=== PATIENT | female | born 1995 | race African-American/Black ===

== ENCOUNTER 2018-08-08 14:24 | Emergency (ER) | payer MEDICAID ==
[~2018-08-08] VITALS: Ht 167.6 cm; Wt 142.0 kg
[2018-08-08] MEDS: ACETAMINOPHEN 325MG TABLET PO ONE (15:30)
[2018-08-08 15:31] LABS: BASOPHILS % 0.5 % (0.0-2.0); CHLORIDE 107 mEq/L (98-107); EOSINOPHILS % 0.1 % (0.0-5.0); HEMATOCRIT. 36.6 % (36.0-48.0); HEMOGLOBIN. 12.4 g/dL (12.0-16.0); LYMPHOCYTES % 20.4 % (20.0-50.0); MEAN CORPUSCULAR HEMOGLOBIN 27.7 pg (28.0-32.0); MEAN PLATELET VOLUME 7.5 fl (7.4-10.4); MONOCYTES % 8.8 % (2.0-8.0); NEUTROPHILS % 70.2 % (40.0-76.0); PLATELET 256 x1000/uL (130-400); RED BLOOD CELL COUNT 4.46 mill/uL (4.2-5.4); RED CELL DISTRIBUTION WIDTH 14.6 % (11.6-14.6)
[2018-08-08 15:34] LABS: ETHANOL BLOOD < 10 mg/dL
[2018-08-08 15:54] LABS: HCG SCREEN NEGATIVE
[2018-08-08] MEDS: SODIUM CHLORIDE 0.9% 1,000 ML IV ONE (16:00)
[2018-08-08 16:40] LABS: CLARITY URINE CLEAR (CLEAR); COLOR URINE YELLOW (YELLOW); KETONES URINE NEGATIVE (NEGATIVE); LEUKOCYTE ESTERASE URINE NEGATIVE (NEGATIVE); NITRITE URINE NEGATIVE (NEGATIVE); OCCULT BLOOD URINE NEGATIVE (NEGATIVE); PROTEIN URINE NEGATIVE (NEGATIVE); SPECIFIC GRAVITY URINE 1.018 (1.005-1.030); UROBILINOGEN URINE 0.2 E.U./dL (0.2-1.0)
[2018-08-08 16:51] LABS: *AMPHETAMINES SCREEN URINE NEGATIVE (NEGATIVE); *BARBITURATES SCREEN URINE NEGATIVE (NEGATIVE); *BENZODIAZEPINES SCREEN URINE NEGATIVE (NEGATIVE); *COCAINE SCREEN URINE NEGATIVE (NEGATIVE)
[2018-08-08 16:52] LABS: CANNABINOID URINE SCREEN NEGATIVE (NEGATIVE); METHADONE URINE SCREEN NEGATIVE (NEGATIVE); OPIATES URINE SCREEN NEGATIVE (NEGATIVE); PHENCYCLIDINE URINE SCREEN NEGATIVE (NEGATIVE)
[2018-08-08] MEDS ORDERED: IOHEXOL-300 100 ML BOTTLE ONE (18:10)
[2018-08-08 18:40] VITALS: BP 124/79
== END 2018-08-08 19:01 | disposition home or self-care (01) ==
LOC: ER 14:24
DX: R10.9 Unspecified abdominal pain (principal); R51 Headache; R07.89 Other chest pain; M54.9 Dorsalgia, unspecified; F31.9 Bipolar disorder, unspecified; I10 Essential (primary) hypertension
CPT/HCPCS: 36415; 74177; 80053; 80305; 80320; 81003; 83690; 84484; 84703; 85025; 93005; 99284; J7030; Q9967; G0480

== ENCOUNTER 2018-08-08 20:04 | Emergency (ER) | payer MEDICAID ==
[~2018-08-08] VITALS: Ht 167.6 cm; Wt 89.0 kg
[2018-08-08] MEDS ORDERED: OLANZAPINE 5MG TABLET ODT PO ONE (23:15)
[2018-08-09 01:49] VITALS: BP 128/92
== END 2018-08-09 01:54 | disposition home or self-care (01) ==
LOC: ER 20:04
DX: F09 Unspecified mental disorder due to known physiological condition (principal); Z76.0 Encounter for issue of repeat prescription; F41.9 Anxiety disorder, unspecified; F31.9 Bipolar disorder, unspecified; I10 Essential (primary) hypertension; Z88.0 Allergy status to penicillin
CPT/HCPCS: 99283

== ENCOUNTER 2018-10-23 20:17 | Emergency (ER) | payer MEDICAID ==
[~2018-10-23] VITALS: Ht 167.6 cm; Wt 91.0 kg
[2018-10-23] MEDS ORDERED: IPRATROPIUM BROMIDE (0.02%) 0.5MG/2.5ML NEB HHN STA (22:14)
[2018-10-23] MEDS ORDERED: ALBUTEROL (0.083%) 2.5MG/3ML NEB HHN STA (22:14)
[2018-10-23] MEDS ORDERED: SODIUM CHLORIDE 0.9% 1,000 ML IV ONE (22:14)
[2018-10-23 23:13] LABS: CLARITY URINE CLEAR (CLEAR); COLOR URINE YELLOW (YELLOW); KETONES URINE TRACE (NEGATIVE); LEUKOCYTE ESTERASE URINE NEGATIVE (NEGATIVE); NITRITE URINE NEGATIVE (NEGATIVE); OCCULT BLOOD URINE NEGATIVE (NEGATIVE); PH URINE 6.5 (4.5-8.0); PROTEIN URINE NEGATIVE (NEGATIVE); SPECIFIC GRAVITY URINE 1.017 (1.005-1.030)
[2018-10-24 00:53] LABS: CHLORIDE 118 mEq/L (98-107)
[2018-10-24 01:02] LABS: BASOPHILS % 0.5 % (0.0-2.0); HEMATOCRIT. 34.7 % (36.0-48.0); HEMOGLOBIN. 11.5 g/dL (12.0-16.0); LYMPHOCYTES % 28.4 % (20.0-50.0); MEAN CORPUSCULAR HEMOGLOBIN 27.2 pg (28.0-32.0); MEAN CORPUSCULAR VOLUME 82.3 fL (81.0-99.0); MEAN PLATELET VOLUME 7.3 fl (7.4-10.4); MONOCYTES % 9.9 % (2.0-8.0); NEUTROPHILS % 60.2 % (40.0-76.0); PLATELET 233 x1000/uL (130-400); RED BLOOD CELL COUNT 4.21 mill/uL (4.2-5.4); RED CELL DISTRIBUTION WIDTH 14.9 % (11.6-14.6)
[2018-10-24 01:10] LABS: HCG SCREEN NEGATIVE
[2018-10-24] MEDS ORDERED: POTASSIUM CHLORIDE 20MEQ TABLET SR PO NR (01:15)
[2018-10-24] MEDS ORDERED: KCL 10MEQ/50ML PREMIX 50 ML IV NR (02:00)
[2018-10-24 04:37] VITALS: BP 128/74
== END 2018-10-24 04:42 | disposition home or self-care (01) ==
LOC: ER 20:17
DX: J20.9 Acute bronchitis, unspecified (principal); N39.0 Urinary tract infection, site not specified; E87.6 Hypokalemia; E87.8 Other disorders of electrolyte and fluid balance, not elsewhere classified; E11.649 Type 2 diabetes mellitus with hypoglycemia without coma; R03.0 Elevated blood-pressure reading, without diagnosis of hypertension
CPT/HCPCS: 36415; 71045; 80053; 81003; 83605; 83690; 84484; 84703; 85025; 93005; 94640; 96360; 96361; 99284; J3480; J7030; J7611; Z7610

== ENCOUNTER 2018-11-11 20:38 | Emergency (ER) | payer MEDICAID ==
[~2018-11-11] VITALS: Ht 165.1 cm; Wt 102.0 kg
[2018-11-11] MEDS ORDERED: KETOROLAC 60MG/2ML VIAL IM STA (22:19)
[2018-11-11] MEDS ORDERED: ONDANSETRON 4MG ODT PO STA (22:19)
[2018-11-11 23:03] LABS: EOSINOPHILS % 1.5 % (0.0-5.0); HEMATOCRIT. 38.3 % (36.0-48.0); LYMPHOCYTES % 31.4 % (20.0-50.0); MEAN CORPUSCULAR HEMOGLOBIN 28.1 pg (28.0-32.0); MEAN CORPUSCULAR VOLUME 82.6 fL (81.0-99.0); MEAN PLATELET VOLUME 7.6 fl (7.4-10.4); MONOCYTES % 10.1 % (2.0-8.0); PLATELET 228 x1000/uL (130-400); RED BLOOD CELL COUNT 4.64 mill/uL (4.2-5.4); RED CELL DISTRIBUTION WIDTH 15.3 % (11.6-14.6)
[2018-11-11 23:07] LABS: CHLORIDE 107 mEq/L (98-107)
[2018-11-11 23:22] LABS: CLARITY URINE CLEAR (CLEAR); COLOR URINE YELLOW (YELLOW); KETONES URINE NEGATIVE (NEGATIVE); LEUKOCYTE ESTERASE URINE NEGATIVE (NEGATIVE); NITRITE URINE NEGATIVE (NEGATIVE); OCCULT BLOOD URINE NEGATIVE (NEGATIVE); PH URINE 5.5 (4.5-8.0); PROTEIN URINE NEGATIVE (NEGATIVE); SPECIFIC GRAVITY URINE 1.015 (1.005-1.030); UROBILINOGEN URINE 0.2 E.U./dL (0.2-1.0)
[2018-11-11 23:33] LABS: *AMPHETAMINES SCREEN URINE NEGATIVE (NEGATIVE); *BARBITURATES SCREEN URINE NEGATIVE (NEGATIVE); CANNABINOID URINE SCREEN NEGATIVE (NEGATIVE); METHADONE URINE SCREEN NEGATIVE (NEGATIVE); OPIATES URINE SCREEN NEGATIVE (NEGATIVE); PHENCYCLIDINE URINE SCREEN NEGATIVE (NEGATIVE)
[2018-11-11 23:34] LABS: *BENZODIAZEPINES SCREEN URINE NEGATIVE (NEGATIVE); *COCAINE SCREEN URINE NEGATIVE (NEGATIVE)
[2018-11-11 23:39] LABS: HCG SCREEN NEGATIVE
[2018-11-12] MEDS ORDERED: ONDANSETRON 4MG ODT PO ONE (01:45)
[2018-11-12 08:49] VITALS: BP 129/72
== END 2018-11-12 08:52 | disposition home or self-care (01) ==
LOC: ER 21:24
DX: R11.2 Nausea with vomiting, unspecified (principal); R19.7 Diarrhea, unspecified; R10.30 Lower abdominal pain, unspecified
CPT/HCPCS: 36415; 80053; 80305; 81003; 81025; 83690; 84703; 85025; 96372; 99283; J1885; Q0162; Z7610

== ENCOUNTER 2018-11-17 12:35 | Emergency (ER) | payer MEDICAID ==
[~2018-11-17] VITALS: Ht 157.5 cm; Wt 130.0 kg
[2018-11-17] MEDS ORDERED: SODIUM CHLORIDE 0.9% 1,000 ML IV ONE (15:23)
[2018-11-17] MEDS ORDERED: OLANZAPINE 10 MG/VIAL IM STA (15:23)
[2018-11-17] MEDS ORDERED: KETOROLAC 30MG/ML VIAL IV STA (15:23)
[2018-11-17] MEDS ORDERED: LORAZEPAM 2MG/ML CPJ IV STA (15:23)
[2018-11-17] MEDS ORDERED: ONDANSETRON HCL 4MG/2ML INJ IV ONE (15:30)
[2018-11-17 15:53] LABS: BASOPHILS % 0.9 % (0.0-2.0); EOSINOPHILS % 0.7 % (0.0-5.0); HEMATOCRIT. 37.8 % (36.0-48.0); HEMOGLOBIN. 12.8 g/dL (12.0-16.0); MEAN CORPUSCULAR HEMOGLOBIN 27.8 pg (28.0-32.0); MEAN CORPUSCULAR VOLUME 82.1 fL (81.0-99.0); MONOCYTES % 7.5 % (2.0-8.0); NEUTROPHILS % 64.9 % (40.0-76.0); PLATELET 222 x1000/uL (130-400); RED BLOOD CELL COUNT 4.61 mill/uL (4.2-5.4); RED CELL DISTRIBUTION WIDTH 15.4 % (11.6-14.6)
[2018-11-17 15:56] LABS: CHLORIDE 108 mEq/L (98-107); HCG SCREEN NEGATIVE
[2018-11-17 15:58] LABS: INR 1.1; PARTIAL THROMBOPLASTIN TIME 28.2 sec (23.4-31.0); PROTHROMBIN TIME 10.9 sec (9.6-11.0)
[2018-11-17 16:00] LABS: ETHANOL BLOOD < 10 mg/dL
[2018-11-17 16:43] LABS: CLARITY URINE CLEAR (CLEAR); COLOR URINE YELLOW (YELLOW); KETONES URINE NEGATIVE (NEGATIVE); LEUKOCYTE ESTERASE URINE NEGATIVE (NEGATIVE); NITRITE URINE NEGATIVE (NEGATIVE); OCCULT BLOOD URINE NEGATIVE (NEGATIVE); PH URINE 7.5 (4.5-8.0); PROTEIN URINE NEGATIVE (NEGATIVE); SPECIFIC GRAVITY URINE 1.017 (1.005-1.030)
[2018-11-17] MEDS ORDERED: VALPROIC ACID 250MG CAPSULE PO ONE (16:45)
[2018-11-17 17:38] LABS: *AMPHETAMINES SCREEN URINE NEGATIVE (NEGATIVE); *BARBITURATES SCREEN URINE NEGATIVE (NEGATIVE)
[2018-11-17 17:39] LABS: *BENZODIAZEPINES SCREEN URINE NEGATIVE (NEGATIVE); *COCAINE SCREEN URINE NEGATIVE (NEGATIVE); CANNABINOID URINE SCREEN NEGATIVE (NEGATIVE); METHADONE URINE SCREEN NEGATIVE (NEGATIVE); OPIATES URINE SCREEN NEGATIVE (NEGATIVE); PHENCYCLIDINE URINE SCREEN NEGATIVE (NEGATIVE)
[2018-11-17] MEDS ORDERED: VALPROIC ACID 250MG CAPSULE PO NR (21:00)
[2018-11-18] MEDS ORDERED: VALPROIC ACID 250MG CAPSULE PO NR (04:45)
[2018-11-18] MEDS ORDERED: VALPROIC ACID 250MG CAPSULE PO ONE (15:15)
[2018-11-18 17:30] VITALS: BP 121/81
== END 2018-11-18 17:59 | disposition home or self-care (01) ==
LOC: ER 12:35
DX: F23 Brief psychotic disorder (principal); R10.84 Generalized abdominal pain; I10 Essential (primary) hypertension; F20.9 Schizophrenia, unspecified; F31.9 Bipolar disorder, unspecified; R11.2 Nausea with vomiting, unspecified; Z88.0 Allergy status to penicillin
CPT/HCPCS: 36415; 70450; 80053; 80165; 80305; 80307; 80320; 80329; 81003; 83690; 83880; 84484; 84703; 85025; 85610; 85730; 93005; 96361; 96372; 96374; 96375; 99284; J1885; J2060; J2405; J3490; J7030; G0480

== ENCOUNTER 2018-11-27 22:40 | Emergency (ER) | payer MEDICAID ==
[~2018-11-27] VITALS: Ht 157.5 cm; Wt 138.0 kg
[2018-11-27 23:18] VITALS: BP 131/95
== END 2018-11-28 05:36 | disposition left against medical advice (07) ==
LOC: ER 22:40
DX: Z53.21 Procedure and treatment not carried out due to patient leaving prior to being seen by health care provider (principal)

== ENCOUNTER 2019-05-08 18:25 | Emergency (ER) | payer MEDICAID ==
[~2019-05-08] VITALS: Ht 154.9 cm; Wt 159.0 kg
[2019-05-08] MEDS ORDERED: KETOROLAC 60MG/2ML VIAL IM ONE (23:00)
[2019-05-08 23:03] VITALS: BP 139/89
== END 2019-05-08 23:04 | disposition home or self-care (01) ==
LOC: ER 18:25
DX: M54.5 Low back pain (principal)
CPT/HCPCS: 96372; 99283; J1885

== ENCOUNTER 2019-06-27 14:59 | Emergency (ER) | payer MEDICAID | END 2019-06-27 15:59 | disposition left against medical advice (07) | LOC: ER 14:59 | DX: F41.0 Panic disorder [episodic paroxysmal anxiety] (principal); Z53.21 Procedure and treatment not carried out due to patient leaving prior to being seen by health care provider ==

== ENCOUNTER 2019-09-05 16:32 | Emergency (ER) | payer MEDICAID ==
[~2019-09-05] VITALS: Ht 154.9 cm; Wt 175.0 kg
[2019-09-05] MEDS ORDERED: ACETAMINOPHEN 325MG TABLET PO ONE (16:45)
[2019-09-05] MEDS ORDERED: SODIUM CHLORIDE 0.9% 1,000 ML IV ONE (17:00)
[2019-09-05] MEDS ORDERED: ONDANSETRON HCL 4MG/2ML INJ IV STA (17:00)
[2019-09-05] MEDS ORDERED: ALBUTEROL 6.7GM HFA INHALER ORI ONE (17:15)
[2019-09-05 18:57] LABS: BASOPHILS % 0.3 % (0.0-2.0); EOSINOPHILS % 2.2 % (0.0-5.0); HEMATOCRIT. 35.6 % (36.0-48.0); HEMOGLOBIN. 11.9 g/dL (12.0-16.0); LYMPHOCYTES % 20.8 % (20.0-50.0); MEAN CORPUSCULAR HEMOGLOBIN 27.5 pg (28.0-32.0); MEAN CORPUSCULAR VOLUME 82.4 fL (81.0-99.0); MEAN PLATELET VOLUME 8.4 fl (7.4-10.4); NEUTROPHILS % 69.7 % (40.0-76.0); PLATELET 267 x1000/uL (130-400); RED BLOOD CELL COUNT 4.32 mill/uL (4.2-5.4)
[2019-09-05 19:02] LABS: CHLORIDE 106 mEq/L (98-107)
[2019-09-05 19:03] LABS: HCG SCREEN NEGATIVE
[2019-09-05 19:04] LABS: PROTHROMBIN TIME 10.4 sec (9.6-11.0)
[2019-09-05 19:15] LABS: CLARITY URINE CLEAR (CLEAR); COLOR URINE YELLOW (YELLOW); KETONES URINE NEGATIVE (NEGATIVE); LEUKOCYTE ESTERASE URINE TRACE (NEGATIVE); NITRITE URINE NEGATIVE (NEGATIVE); OCCULT BLOOD URINE NEGATIVE (NEGATIVE); PH URINE 6.5 (4.5-8.0); PROTEIN URINE NEGATIVE (NEGATIVE); SPECIFIC GRAVITY URINE 1.008 (1.005-1.030); UROBILINOGEN URINE 0.2 E.U./dL (0.2-1.0)
[2019-09-05] MEDS ORDERED: KETOROLAC 30MG/ML VIAL IV ONE (20:00)
[2019-09-05 20:30] VITALS: BP 136/71
== END 2019-09-05 20:32 | disposition home or self-care (01) ==
LOC: ER 16:32
DX: J06.9 Acute upper respiratory infection, unspecified (principal); Z03.818 Encounter for observation for suspected exposure to other biological agents ruled out; N39.0 Urinary tract infection, site not specified; L53.9 Erythematous condition, unspecified; I10 Essential (primary) hypertension; E11.65 Type 2 diabetes mellitus with hyperglycemia; Z90.49 Acquired absence of other specified parts of digestive tract; Z98.890 Other specified postprocedural states; Z88.0 Allergy status to penicillin
CPT/HCPCS: 36415; 71045; 80053; 81003; 83690; 83880; 84703; 85025; 85610; 87635; 87804; 93005; 94640; 96374; 96375; 99285; J1885; J2405; J7030; Z7610; C9803-CS; U0003-CS

== ENCOUNTER 2019-09-07 17:24 | Emergency (ER) | payer MEDICAID ==
[~2019-09-07] VITALS: Ht 165.1 cm; Wt 135.0 kg
[2019-09-07 18:58] VITALS: BP 147/100
[2019-09-07] MEDS ORDERED: PREDNISONE 20MG TABLET PO STA (19:05)
== END 2019-09-07 19:24 | disposition home or self-care (01) ==
LOC: ER 17:24
DX: J45.909 Unspecified asthma, uncomplicated (principal); I10 Essential (primary) hypertension; E11.9 Type 2 diabetes mellitus without complications; Z79.51 Long term (current) use of inhaled steroids; Z79.52 Long term (current) use of systemic steroids
CPT/HCPCS: 81025; 82962; 99283; J7512

== ENCOUNTER 2019-12-07 22:53 | Emergency (ER) | payer MEDICAID ==
[~2019-12-07] VITALS: Ht 160 cm; Wt 114.0 kg
[2019-12-07 23:54] LABS: CLARITY URINE CLEAR (CLEAR); COLOR URINE YELLOW (YELLOW); KETONES URINE NEGATIVE (NEGATIVE); LEUKOCYTE ESTERASE URINE NEGATIVE (NEGATIVE); NITRITE URINE NEGATIVE (NEGATIVE); OCCULT BLOOD URINE NEGATIVE (NEGATIVE); PH URINE 7.5 (4.5-8.0); PROTEIN URINE NEGATIVE (NEGATIVE); SPECIFIC GRAVITY URINE 1.013 (1.005-1.030); UROBILINOGEN URINE 0.2 E.U./dL (0.2-1.0)
[2019-12-08 00:16] LABS: BASOPHILS % 0.4 % (0.0-2.0); EOSINOPHILS % 2.3 % (0.0-5.0); HEMATOCRIT. 33.7 % (36.0-48.0); HEMOGLOBIN. 11.3 g/dL (12.0-16.0); LYMPHOCYTES % 24.1 % (20.0-50.0); MEAN CORPUSCULAR VOLUME 80.5 fL (81.0-99.0); MEAN PLATELET VOLUME 7.7 fl (7.4-10.4); MONOCYTES % 7.7 % (2.0-8.0); NEUTROPHILS % 65.5 % (40.0-76.0); PLATELET 303 x1000/uL (130-400); RED BLOOD CELL COUNT 4.18 mill/uL (4.2-5.4); RED CELL DISTRIBUTION WIDTH 14.4 % (11.6-14.6)
[2019-12-08 00:24] LABS: CHLORIDE 103 mEq/L (98-107)
[2019-12-08 00:37] LABS: B-HCG QUANTITATIVE < 1 mIU/mL (<3)
[2019-12-08] MEDS ORDERED: INSULIN REGULAR (HUMULIN R) 300UNITS/3ML SUBCUT SCH (00:45)
[2019-12-08] MEDS ORDERED: SODIUM CHLORIDE 0.9% 1,000 ML IV ONE (00:45)
[2019-12-08] MEDS ORDERED: KETOROLAC 30MG/ML VIAL IV ONE (01:45)
[2019-12-08 03:05] VITALS: BP 140/78
== END 2019-12-08 03:09 | disposition home or self-care (01) ==
LOC: ER 22:53
DX: N93.9 Abnormal uterine and vaginal bleeding, unspecified (principal); E11.65 Type 2 diabetes mellitus with hyperglycemia; J45.909 Unspecified asthma, uncomplicated; E11.9 Type 2 diabetes mellitus without complications; I10 Essential (primary) hypertension; Z90.49 Acquired absence of other specified parts of digestive tract; Z98.890 Other specified postprocedural states; Z88.0 Allergy status to penicillin
CPT/HCPCS: 36415; 76830; 76856; 80053; 81003; 81025; 82962; 84702; 85025; 86850; 86900; 86901; 96361; 96372; 96374; 99284; J1815; J1885

== ENCOUNTER 2019-12-08 03:42 | Emergency (ER) | payer MEDICAID ==
[~2019-12-08] VITALS: Ht 157.5 cm; Wt 150.0 kg
[2019-12-08 04:54] LABS: CLARITY URINE CLEAR (CLEAR); COLOR URINE YELLOW (YELLOW); KETONES URINE NEGATIVE (NEGATIVE); LEUKOCYTE ESTERASE URINE 1+ (NEGATIVE); NITRITE URINE NEGATIVE (NEGATIVE); OCCULT BLOOD URINE NEGATIVE (NEGATIVE); PH URINE 5.5 (4.5-8.0); PROTEIN URINE NEGATIVE (NEGATIVE); SPECIFIC GRAVITY URINE 1.018 (1.005-1.030); UROBILINOGEN URINE 0.2 E.U./dL (0.2-1.0)
[2019-12-08 05:01] LABS: BASOPHILS % 0.6 % (0.0-2.0); EOSINOPHILS % 2.7 % (0.0-5.0); HEMATOCRIT. 32.1 % (36.0-48.0); HEMOGLOBIN. 10.8 g/dL (12.0-16.0); LYMPHOCYTES % 24.2 % (20.0-50.0); MEAN CORPUSCULAR VOLUME 80.6 fL (81.0-99.0); MEAN PLATELET VOLUME 7.8 fl (7.4-10.4); MONOCYTES % 7.3 % (2.0-8.0); NEUTROPHILS % 65.2 % (40.0-76.0); PLATELET 292 x1000/uL (130-400); RED BLOOD CELL COUNT 3.98 mill/uL (4.2-5.4); RED CELL DISTRIBUTION WIDTH 14.2 % (11.6-14.6)
[2019-12-08 05:08] LABS: *AMPHETAMINES SCREEN URINE NEGATIVE (NEGATIVE)
[2019-12-08 05:09] LABS: CHLORIDE 104 mEq/L (98-107)
[2019-12-08 05:09] LABS: *BARBITURATES SCREEN URINE NEGATIVE (NEGATIVE); *BENZODIAZEPINES SCREEN URINE NEGATIVE (NEGATIVE); *COCAINE SCREEN URINE NEGATIVE (NEGATIVE); CANNABINOID URINE SCREEN NEGATIVE (NEGATIVE); METHADONE URINE SCREEN NEGATIVE (NEGATIVE); OPIATES URINE SCREEN NEGATIVE (NEGATIVE); PHENCYCLIDINE URINE SCREEN NEGATIVE (NEGATIVE)
[2019-12-08 05:12] LABS: ETHANOL BLOOD < 10 mg/dL
[2019-12-08 05:20] LABS: HCG SCREEN NEGATIVE
[2019-12-08 11:44] VITALS: BP 125/78
== END 2019-12-08 11:47 | disposition home or self-care (01) ==
LOC: ER 03:42
DX: R45.851 Suicidal ideations (principal); J45.909 Unspecified asthma, uncomplicated; I10 Essential (primary) hypertension; Z88.0 Allergy status to penicillin; Z98.890 Other specified postprocedural states
CPT/HCPCS: 36415; 80053; 80305; 80307; 80320; 80329; 81003; 81025; 84703; 85025; 93005; 99285; G0480

== ENCOUNTER 2020-02-10 17:18 | Emergency (ER) | payer MEDICAID, MEDICARE ==
[~2020-02-10] VITALS: Ht 162.6 cm; Wt 110.0 kg
[2020-02-10] MEDS ORDERED: ACETAMINOPHEN 325MG TABLET PO STA (18:01)
[2020-02-10] MEDS ORDERED: SODIUM CHLORIDE 0.9% 1,000 ML IV ONE (18:15)
[2020-02-10 18:43] LABS: BASOPHILS % 0.7 % (0.0-2.0); EOSINOPHILS % 1.2 % (0.0-5.0); HEMATOCRIT. 35.5 % (36.0-48.0); HEMOGLOBIN. 11.6 g/dL (12.0-16.0); LYMPHOCYTES % 15.1 % (20.0-50.0); MEAN CORPUSCULAR HEMOGLOBIN 25.3 pg (28.0-32.0); MEAN CORPUSCULAR VOLUME 77.8 fL (81.0-99.0); MEAN PLATELET VOLUME 7.4 fl (7.4-10.4); MONOCYTES % 4.5 % (2.0-8.0); NEUTROPHILS % 78.5 % (40.0-76.0); PLATELET 350 x1000/uL (130-400); RED BLOOD CELL COUNT 4.57 mill/uL (4.2-5.4); RED CELL DISTRIBUTION WIDTH 15.6 % (11.6-14.6)
[2020-02-10 18:48] LABS: CHLORIDE 106 mEq/L (98-107)
[2020-02-10 22:30] VITALS: BP 116/99
== END 2020-02-11 00:34 | disposition left against medical advice (07) ==
LOC: ER 17:18
DX: R07.89 Other chest pain (principal); R00.0 Tachycardia, unspecified; I10 Essential (primary) hypertension; F41.9 Anxiety disorder, unspecified; J45.909 Unspecified asthma, uncomplicated; E11.9 Type 2 diabetes mellitus without complications; Z98.890 Other specified postprocedural states; Z88.0 Allergy status to penicillin
CPT/HCPCS: 36415; 71045; 80053; 81025; 83880; 84484; 85025; 85379; 93005; 96360; 99285; J7030

== ENCOUNTER 2020-02-25 19:37 | Emergency (ER) | payer MEDICARE ==
[~2020-02-25] VITALS: Ht 157.5 cm; Wt 153.0 kg
[~2020-02-25 19:37] MED LIST: CLON1TAB PO; LEVO500T2 MT; ONDA4TAB5 MT; RISP1 PO
[2020-02-25 21:10] LABS: BASOPHILS % 0.3 % (0.0-2.0); EOSINOPHILS % 1.6 % (0.0-5.0); HEMATOCRIT. 33.8 % (36.0-48.0); LYMPHOCYTES % 19.7 % (20.0-50.0); MEAN CORPUSCULAR HEMOGLOBIN 24.7 pg (28.0-32.0); MEAN CORPUSCULAR VOLUME 75.9 fL (81.0-99.0); MEAN PLATELET VOLUME 7.7 fl (7.4-10.4); MONOCYTES % 5.2 % (2.0-8.0); NEUTROPHILS % 73.2 % (40.0-76.0); PLATELET 366 x1000/uL (130-400); RED BLOOD CELL COUNT 4.45 mill/uL (4.2-5.4); RED CELL DISTRIBUTION WIDTH 16.1 % (11.6-14.6)
[2020-02-25 21:14] LABS: CHLORIDE 106 mEq/L (98-107)
[2020-02-25 21:18] LABS: ETHANOL BLOOD < 10 mg/dL
[2020-02-25 21:20] LABS: CLARITY URINE CLEAR (CLEAR); COLOR URINE YELLOW (YELLOW); KETONES URINE NEGATIVE (NEGATIVE); LEUKOCYTE ESTERASE URINE NEGATIVE (NEGATIVE); NITRITE URINE NEGATIVE (NEGATIVE); OCCULT BLOOD URINE NEGATIVE (NEGATIVE); PROTEIN URINE NEGATIVE (NEGATIVE); SPECIFIC GRAVITY URINE 1.003 (1.005-1.030); UROBILINOGEN URINE 0.2 E.U./dL (0.2-1.0)
[2020-02-25 21:29] LABS: *AMPHETAMINES SCREEN URINE NEGATIVE (NEGATIVE)
[2020-02-25 21:30] LABS: *BARBITURATES SCREEN URINE NEGATIVE (NEGATIVE); *BENZODIAZEPINES SCREEN URINE NEGATIVE (NEGATIVE); *COCAINE SCREEN URINE NEGATIVE (NEGATIVE); METHADONE URINE SCREEN NEGATIVE (NEGATIVE); OPIATES URINE SCREEN NEGATIVE (NEGATIVE); PHENCYCLIDINE URINE SCREEN NEGATIVE (NEGATIVE)
[2020-02-25 21:31] LABS: CANNABINOID URINE SCREEN NEGATIVE (NEGATIVE)
[2020-02-25] MEDS ORDERED: ACETAMINOPHEN 500MG TABLET PO ONE (22:30)
[2020-02-27] MEDS ORDERED: RISPERIDONE 1MG TABLET PO SCH (18:00)
[2020-02-27 20:00] VITALS: BP 121/78
== END 2020-02-27 20:20 ==
LOC: ER 19:37
DX: R45.851 Suicidal ideations (principal); F41.9 Anxiety disorder, unspecified; J45.909 Unspecified asthma, uncomplicated; F32.9 Major depressive disorder, single episode, unspecified; E11.9 Type 2 diabetes mellitus without complications; I10 Essential (primary) hypertension; Z98.890 Other specified postprocedural states; Z90.49 Acquired absence of other specified parts of digestive tract; Z88.0 Allergy status to penicillin; Z79.899 Other long term (current) drug therapy; Z20.828 Contact with and (suspected) exposure to other viral communicable diseases
CPT/HCPCS: 36415; 80053; 80305; 80307; 80320; 80329; 81003; 81025; 82962; 85025; 87635; 93005; 99285; C9803; G0480

== ENCOUNTER 2021-06-14 20:29 | Emergency (ER) | payer MEDICARE ==
[~2021-06-14] VITALS: Ht 162.6 cm; Wt 145.0 kg
[2021-06-14 23:07] LABS: BASOPHILS % 0.1 % (0.0-2.0); HEMATOCRIT. 37.1 % (36.0-48.0); HEMOGLOBIN. 11.6 g/dL (12.0-16.0); LYMPHOCYTES % 13.5 % (20.0-50.0); MEAN CORPUSCULAR HEMOGLOBIN 23.6 pg (28.0-32.0); MEAN CORPUSCULAR VOLUME 75.4 fL (81.0-99.0); MEAN PLATELET VOLUME 7.8 fl (7.4-10.4); MONOCYTES % 5.2 % (2.0-8.0); NEUTROPHILS % 80.2 % (40.0-76.0); PLATELET 381 x1000/uL (130-400); RED BLOOD CELL COUNT 4.92 mill/uL (4.2-5.4); RED CELL DISTRIBUTION WIDTH 17.2 % (11.6-14.6)
[2021-06-14 23:10] LABS: CHLORIDE 100 mEq/L (98-107)
[2021-06-15 00:06] LABS: CLARITY URINE CLOUDY (CLEAR); COLOR URINE YELLOW (YELLOW); KETONES URINE NEGATIVE (NEGATIVE); LEUKOCYTE ESTERASE URINE 3+ (NEGATIVE); NITRITE URINE NEGATIVE (NEGATIVE); OCCULT BLOOD URINE NEGATIVE (NEGATIVE); PH URINE 7.5 (4.5-8.0); PROTEIN URINE 1+ (NEGATIVE); SPECIFIC GRAVITY URINE 1.005 (1.005-1.030); UROBILINOGEN URINE 0.2 E.U./dL (0.2-1.0)
[2021-06-15] MEDS ORDERED: CEFTRIAXONE 1 G PREMIX 50 ML IV NR (00:45)
[2021-06-15] MEDS ORDERED: CEPH500T MT (00:58)
[2021-06-15] MEDS ORDERED: SODIUM CHLORIDE 0.9% 1,000 ML IV ONE (04:15)
[2021-06-15 04:16] VITALS: BP 129/85
== END 2021-06-15 04:18 | disposition home or self-care (01) ==
LOC: ER 20:29
DX: R10.33 Periumbilical pain (principal); F41.9 Anxiety disorder, unspecified; F31.9 Bipolar disorder, unspecified; E11.9 Type 2 diabetes mellitus without complications; I10 Essential (primary) hypertension; Z88.0 Allergy status to penicillin
CPT/HCPCS: 36415; 74176; 80053; 81003; 81025; 82962; 83690; 85025; 87086; 93005; 96365; 99285; J0696; J7030

== ENCOUNTER 2022-01-05 17:24 | Emergency (ER) | payer MEDICAID, MEDICARE ==
[~2022-01-05] VITALS: Ht 154.9 cm; Wt 150.0 kg
[~2022-01-05 17:24] MED LIST changes: +CEPH500T MT
[2022-01-05 17:46] VITALS: BP 131/110
== END 2022-01-06 01:20 | disposition left against medical advice (07) ==
LOC: ER 17:24
DX: Z53.21 Procedure and treatment not carried out due to patient leaving prior to being seen by health care provider (principal)

== ENCOUNTER 2022-02-19 11:04 | Emergency (ER) | payer MEDICAID, MEDICARE ==
[~2022-02-19] VITALS: Ht 170.2 cm; Wt 127.0 kg
[2022-02-19 11:05] VITALS: BP 129/105
[2022-02-19] MEDS ORDERED: TETRACAINE 0.5% OPHTH DROPS 4ML EACHEYE ONE (11:45)
[2022-02-19] MEDS ORDERED: FLUORESCEIN SODIUM 1MG/STRIP EACHEYE ONE (11:45)
[2022-02-19] MEDS ORDERED: NAPHADR EACHEYE (13:00)
== END 2022-02-19 13:13 | disposition home or self-care (01) ==
LOC: ER 11:04
DX: B30.9 Viral conjunctivitis, unspecified (principal); I10 Essential (primary) hypertension; E11.9 Type 2 diabetes mellitus without complications; J45.909 Unspecified asthma, uncomplicated; Z88.0 Allergy status to penicillin; Z79.899 Other long term (current) drug therapy
CPT/HCPCS: 81025; 99283

== ENCOUNTER 2023-04-13 11:32 | Emergency (ER) | payer MEDICARE ==
[~2023-04-13] VITALS: Ht 167.6 cm; Wt 137.0 kg
[~2023-04-13 11:32] MED LIST changes: +LEVO-65 MT; -LEVO500T2 MT; +NAPHADR EACHEYE
[2023-04-13 11:43] VITALS: BP 144/98; TEMP 98.8
[2023-04-13] MEDS ORDERED: IPRATROPIUM/ALBUTEROL 0.5-3(2.5)MG/3ML NEB HHN ONE (12:00)
[2023-04-13] MEDS ORDERED: DEXAMETHASONE 10 MG/ML VIAL PO ONE (12:00)
[2023-04-13 12:21] VITALS: PULSE 86; RESP 18; O2SAT 96
[2023-04-13] MEDS ORDERED: AZIT250T12 PO ×3 (14:39→15:20)
[2023-04-13] MEDS ORDERED: AZITHROMYCIN 500 MG TABLET PO SCH (14:45)
== END 2023-04-13 16:57 | disposition home or self-care (01) ==
LOC: ER 11:32
DX: J18.9 Pneumonia, unspecified organism (principal); J45.901 Unspecified asthma with (acute) exacerbation; E11.9 Type 2 diabetes mellitus without complications; I10 Essential (primary) hypertension; Z90.49 Acquired absence of other specified parts of digestive tract; Z88.0 Allergy status to penicillin; Z20.822 Contact with and (suspected) exposure to COVID-19
CPT/HCPCS: 71045; 94640; 99284; 87426; J1100; Z7610 ×3; C9803